=== PATIENT | female | born 1985 | race Caucasian/White ===

== ENCOUNTER 2017-11-20 21:27 | Emergency (ER) | payer OTHER ==
[~2017-11-20] VITALS: Ht 154.9 cm; Wt 92.1 kg
[2017-11-20 21:27] VITALS: BP 105/70
--- NOTE | 2017-11-20 21:27 | NUR ---
PT BIBA TO ER BED 01
--- NOTE | 2017-11-20 21:30 | NUR ---
PATIENT IS A 32 Y/O FEMALE WH PRESENTS TO THE ED C/O ANXIETY. PT STATES THAT SHE BROKE UP WITH HER BOYFRIEND. [facility] WAS GIVEN 5 MG VERSED IM IN THE FIELD. PT REPORTS 5/10 ACHING HEADACHE PAIN THAT DOES NOT RADIATE. PT DENIES CP, SOB, N/V/D. PT AAOX4, RR EVEN/UNLABORED. PT REPOSITIONED FOR COMFORT, BED IN LOWEST POSITION. ER MD DR. REAVES NOTIFIED. WILL CONTINUE TO MONITOR.
[2017-11-20] MEDS ORDERED: ALPRAZolam 0.5 MG TAB PO ONE (22:20)
[2017-11-20 22:23] LABS: APPEARANCE,URINE CLEAR (CLEAR); BARBITURATE, URINE NEG. ng/ml (NEG <=200); BENZODIAZEPINE, URINE NEG. ng/mL (NEG <=200); BILIRUBIN,URINE NEGATIVE (NEGATIVE); BLOOD, URINE 2+ (NEGATIVE); CANNABINOID, URINE NEG. ng/mL (NEG <=50); COCAINE, URINE NEG. ng/mL (NEG <=300); COLOR,URINE YELLOW (YELLOW); LEUKOCYTE ESTERASE ,URINE NEGATIVE (NEGATIVE); NITRITE, URINE NEGATIVE (NEGATIVE); OPIATE, URINE NEG. ng/mL (NEG <=2000); PH,URINE 5.5 (5.0-9.0); PHENCYCLIDINE SCREEN,URINE NEG. ng/mL (NEG <=25); UGLUCOSE NEGATIVE (NEGATIVE)
[2017-11-20 23:04] VITALS: BP 109/54
--- NOTE | 2017-11-20 23:04 | NUR ---
Patient discharged with v/s stable. Written and verbal after care instructions given and explained. Patient verbalized understanding. Wheel Chair Assisted with to car. All questions addressed prior to discharge. Advised to follow up with PMD.
[2017-11-21 00:36] LABS: RBC,URINE 0-5 (RARE) /HPF (0-5); WBC,URINE 0-5 (RARE) /HPF (0-5)
== END 2017-11-20 23:04 | disposition home or self-care (01) ==
LOC: MED 21:27
DX: F41.9 Anxiety disorder, unspecified (principal); J45.909 Unspecified asthma, uncomplicated; Z88.1 Allergy status to other antibiotic agents
CPT/HCPCS: 71045; 80305; 81001; 81025; 93005; 99285; Q0092